=== PATIENT | male | born 1940 | race Caucasian/White ===

== ENCOUNTER 2020-01-12 08:17 | Inpatient (IN) ==
[2020-01-12 08:40] LABS: Basophils % 0.1 %; Eosinophils % 0.1 %; Hematocrit 40.7 % (37.5-50.1); Hemoglobin 12.9 g/dL (12.9-16.9); Immature Granulocytes % 0.3 % (0-4); Lymphocytes # 1.3 K/mcL (0.6-4.6); Lymphocytes % 8.6 %; Mean Corpuscular HGB Conc 31.7 g/dL (31.6-35.5); Mean Corpuscular Hemoglobin 30.7 pg (28.0-33.3); Mean Corpuscular Volume 96.9 fL (83.0-100.0); Mean Platelet Volume 10.8 fL (9.4-12.4); Monocytes # 0.9 K/mcL (0.0-1.3); Monocytes % 5.8 %; Neutrophils # 12.9 K/mcL (1.6-8.9); Platelet Count 181 K/mcL (140-400); Red Cell Distribution Width 13.5 % (11.5-14.5); Segmented Neutrophils % 85.1 %; White Blood Count 15.1 K/mcL (4.3-11.1)
[2020-01-12] MEDS ORDERED: 0.9 % Sodium Chloride 1,000 ML IVC ONE (08:55)
[2020-01-12 09:05] LABS: Alanine Aminotransferase 20 Units/L (7-52); Albumin/Globulin Ratio 1.2 (1.1-2.2); Alkaline Phosphatase 168 Units/L (34-104); Aspartate Amino Transferase 23 Units/L (13-39); BUN/Creatinine Ratio 25 (6-26); Blood Urea Nitrogen 24 mg/dL (8-23); Calcium 9.4 mg/dL (8.6-10.3); Carbon Dioxide 29 mEq/L (23-29); Chloride 105 mEq/L (98-107); Globulin 3.4 g/dL (2.4-3.5); Glucose 139 mg/dL (70-105); Osmolality,Calculated 302 (280-300); Potassium 3.6 mEq/L (3.5-5.1); Sodium 143 mEq/L (136-145); Total Protein 7.4 g/dL (6.4-8.9); Troponin I < 0.03 ng/mL (< 0.04); eGFR For African Americans > 60 (> 60); eGFR For Non-African Americans > 60 (> 60)
[2020-01-12 09:18] LABS: Creatine Kinase 101 Units/L (30-223)
[2020-01-12 09:24] LABS: Thyroid Stimulating Hormone 1.459 mcIU/mL (0.340-5.600)
[2020-01-12 09:30] LABS: Bilirubin,Urine Negative (Negative); Blood,Urine Negative (Negative); Clarity,Urine Clear (Clear); Color,Urine Yellow (Yellow); Glucose,Urine (UA) Normal (Normal); Ketones,Urine Trace mg/dL (Negative); Leukocyte Esterase,Urine Negative (Negative); Nitrite,Urine Negative (Negative); PH,Urine 5.5 pH Units (5.0-8.0); Protein,Urine Trace mg/dL (Neg-Trace); Specific Gravity,Urine 1.029 (1.010-1.025); Urobilinogen,Urine Normal (Normal)
[2020-01-12] MEDS ORDERED: Morphine Sulfate 2 MG/ML SYRINGE IVP STA (09:33)
[2020-01-12] MEDS ORDERED: *HR* Metoprolol 5 MG/5 ML VIAL IVP ONE (09:36)
[2020-01-12] MEDS ORDERED: Naloxone 0.4 MG/ML INJ IVP PRN ×2 (09:39→15:11)
[2020-01-12] MEDS ORDERED: *HR* FentaNYL (PF) 100 MCG/2 ML VIAL ONE (10:51)
[2020-01-12] MEDS ORDERED: *HR* Propofol 200 MG/20 ML VIAL IVP ONE (10:51)
[2020-01-12] MEDS ORDERED: Dexamethasone 4 MG/ML VIAL ONE (10:55)
[2020-01-12] MEDS ORDERED: Lidocaine -MPF 2% 2 ML VIAL ONE (10:55)
[2020-01-12] MEDS ORDERED: Ondansetron 4 MG/2 ML VIAL ONE (10:55)
[2020-01-12] MEDS ORDERED: *HR* Succinylcholine 200 MG/10 ML VIAL IVP ONE (10:55)
[2020-01-12] MEDS ORDERED: *HR* Rocuronium Bromide 50 MG/5 ML VIAL ONE (10:55)
[2020-01-12] MEDS ORDERED: *HR* OxyCODONE/APAP 10/325 TABLET PO PRN (11:05)
[2020-01-12] MEDS ORDERED: *HR* Heparin 5,000 UNIT/ML VIAL SQ SCH (14:00)
[2020-01-12] MEDS ORDERED: *HR* FentaNYL (PF) 100 MCG/2 ML VIAL IVP PRN (14:01)
[2020-01-12] MEDS ORDERED: Ondansetron 4 MG/2 ML VIAL IVP ONE (14:01)
[2020-01-12] MEDS ORDERED: Hydrocortisone Sodium Succ 100 MG/2 ML VIAL ONE (14:02)
[2020-01-12] MEDS ORDERED: Acetaminophen IV 1,000 MG/100 ML INFUS..BTL ONE (14:02)
[2020-01-12 15:25] LABS: Hematocrit 36.6 % (37.5-50.1); Hemoglobin 11.6 g/dL (12.9-16.9)
[2020-01-12] MEDS ORDERED: Hydrocortisone 10 MG TABLET PO SCH (18:00)
[2020-01-12] MEDS ORDERED: Gabapentin 100 MG CAPSULE PO SCH (18:00)
[2020-01-12] MEDS ORDERED: Melatonin 3 MG TABLET PO SCH (18:00)
[2020-01-12] MEDS: ceFAZolin 2,000 MG in 0.9 % Sodium Chloride 100 ML IVPB SCH (20:35)
[2020-01-12] MEDS: Melatonin 3 MG TABLET PO SCH (20:38)
[2020-01-12] MEDS: Mirtazapine 15 MG TABLET PO SCH (20:38)
[2020-01-12] MEDS: Gabapentin 100 MG CAPSULE PO SCH (20:38)
[2020-01-12] MEDS: Hydrocortisone 10 MG TABLET PO SCH (20:38)
[2020-01-12] MEDS ORDERED: Mirtazapine 15 MG TABLET PO SCH (21:00)
[2020-01-13 01:29] LABS: Hemoglobin 10.8 g/dL (12.9-16.9)
[2020-01-13 01:30] LABS: Hematocrit 33.2 % (37.5-50.1); Immature Platelets 5.1 % (1.1-6.1); Mean Corpuscular HGB Conc 32.5 g/dL (31.6-35.5); Mean Corpuscular Hemoglobin 31.9 pg (28.0-33.3); Mean Corpuscular Volume 97.9 fL (83.0-100.0); Mean Platelet Volume 11.4 fL (9.4-12.4); Red Blood Count 3.39 M/mcL (4.19-5.50); White Blood Count 9.3 K/mcL (4.3-11.1)
[2020-01-13 01:49] LABS: BUN/Creatinine Ratio 25 (6-26); Blood Urea Nitrogen 21 mg/dL (8-23); Calcium 8.3 mg/dL (8.6-10.3); Carbon Dioxide 27 mEq/L (23-29); Chloride 107 mEq/L (98-107); Glucose 120 mg/dL (70-105); Magnesium 1.8 mg/dL (1.6-2.6); Osmolality,Calculated 292 (280-300); Potassium 3.9 mEq/L (3.5-5.1); Sodium 139 mEq/L (136-145); eGFR For African Americans > 60 (> 60); eGFR For Non-African Americans > 60 (> 60)
[2020-01-13] MEDS: ceFAZolin 2,000 MG in 0.9 % Sodium Chloride 100 ML IVPB SCH (05:10)
[2020-01-13] MEDS ORDERED: Cholecalciferol (D-3) 1,000 UNIT (25MCG) TABLET PO SCH (08:00)
[2020-01-13] MEDS ORDERED: Aspirin Enteric Coated 81 MG Tablet PO SCH ×2 (08:00)
[2020-01-13] MEDS: Cholecalciferol (D-3) 1,000 UNIT (25MCG) TABLET PO SCH (08:42)
[2020-01-13] MEDS: Hydrocortisone 10 MG TABLET PO SCH ×2 (08:42→17:51)
[2020-01-13] MEDS: Gabapentin 100 MG CAPSULE PO SCH ×2 (08:43→17:51)
[2020-01-13] MEDS ORDERED: Furosemide 20 MG TABLET PO SCH ×2 (09:00)
[2020-01-13] MEDS: *HR* OxyCODONE/APAP 10/325 TABLET PO PRN (09:11)
[2020-01-13] MEDS ORDERED: Haloperidol Lactate 5 MG/ML VIAL IM ONE (14:45)
[2020-01-13 15:57] LABS: Basophils % 0.2 %; Eosinophils # 0.3 K/mcL (0.0-0.6); Hematocrit 37.1 % (37.5-50.1); Hemoglobin 11.6 g/dL (12.9-16.9); Immature Granulocytes % 0.4 % (0-4); Lymphocytes # 1.6 K/mcL (0.6-4.6); Lymphocytes % 16.8 %; Mean Corpuscular HGB Conc 31.3 g/dL (31.6-35.5); Mean Corpuscular Hemoglobin 30.9 pg (28.0-33.3); Mean Corpuscular Volume 98.9 fL (83.0-100.0); Mean Platelet Volume 10.6 fL (9.4-12.4); Monocytes # 0.5 K/mcL (0.0-1.3); Platelet Count 118 K/mcL (140-400); Red Blood Count 3.75 M/mcL (4.19-5.50); Red Cell Distribution Width 13.9 % (11.5-14.5); Segmented Neutrophils % 74.6 %; White Blood Count 9.4 K/mcL (4.3-11.1)
[2020-01-13] MEDS: Acetaminophen 325 MG TABLET PO SCH (17:51)
[2020-01-13] MEDS: *HR* Heparin 5,000 UNIT/ML VIAL SQ SCH (17:55)
[2020-01-13] MEDS: Melatonin 3 MG TABLET PO SCH (22:26)
[2020-01-13] MEDS: risperiDONE 0.25 MG TABLET PO SCH (22:27)
[2020-01-13] MEDS: Mirtazapine 15 MG TABLET PO SCH (22:27)
[2020-01-14] MEDS: *HR* Heparin 5,000 UNIT/ML VIAL SQ SCH ×2 (06:38→16:35)
[2020-01-14 06:40] LABS: Mean Corpuscular Volume 97.4 fL (83.0-100.0)
[2020-01-14 06:41] LABS: Hematocrit 38.1 % (37.5-50.1); Hemoglobin 11.7 g/dL (12.9-16.9); Immature Platelets 4.9 % (1.1-6.1); Mean Corpuscular HGB Conc 30.7 g/dL (31.6-35.5); Mean Corpuscular Hemoglobin 29.9 pg (28.0-33.3); Mean Platelet Volume 10.9 fL (9.4-12.4); Red Blood Count 3.91 M/mcL (4.19-5.50); Red Cell Distribution Width 13.9 % (11.5-14.5); White Blood Count 7.4 K/mcL (4.3-11.1)
[2020-01-14 06:59] LABS: BUN/Creatinine Ratio 20 (6-26); Blood Urea Nitrogen 18 mg/dL (8-23); Calcium 8.9 mg/dL (8.6-10.3); Carbon Dioxide 31 mEq/L (23-29); Chloride 103 mEq/L (98-107); Glucose 90 mg/dL (70-105); Osmolality,Calculated 291 (280-300); Potassium 3.5 mEq/L (3.5-5.1); Sodium 140 mEq/L (136-145); eGFR For African Americans > 60 (> 60); eGFR For Non-African Americans > 60 (> 60)
[2020-01-14] MEDS: Gabapentin 100 MG CAPSULE PO SCH ×2 (07:27→16:35)
[2020-01-14] MEDS: Aspirin Enteric Coated 325 MG Tablet PO SCH (07:27)
[2020-01-14] MEDS: risperiDONE 0.25 MG TABLET PO SCH ×2 (07:27→20:32)
[2020-01-14] MEDS: methIMAzole 5 MG TABLET PO SCH (07:28)
[2020-01-14] MEDS: Furosemide 20 MG TABLET PO SCH (07:28)
[2020-01-14] MEDS: Acetaminophen 325 MG TABLET PO SCH ×2 (07:28→16:35)
[2020-01-14] MEDS: Hydrocortisone 10 MG TABLET PO SCH ×2 (07:28→16:35)
[2020-01-14] MEDS: Cholecalciferol (D-3) 1,000 UNIT (25MCG) TABLET PO SCH (07:28)
[2020-01-14] MEDS: Melatonin 3 MG TABLET PO SCH (16:36)
[2020-01-14] MEDS: Mirtazapine 15 MG TABLET PO SCH (20:32)
[2020-01-14] MEDS: *HR* OxyCODONE/APAP 10/325 TABLET PO PRN (23:54)
[2020-01-15 01:18] LABS: Hemoglobin 11.7 g/dL (12.9-16.9); Immature Granulocytes % 0.3 % (0-4)
[2020-01-15 01:20] LABS: Basophils % 0.3 %; Eosinophils # 0.3 K/mcL (0.0-0.6); Hematocrit 37.4 % (37.5-50.1); Immature Platelets 5.8 % (1.1-6.1); Lymphocytes # 1.2 K/mcL (0.6-4.6); Lymphocytes % 17.4 %; Mean Corpuscular HGB Conc 31.3 g/dL (31.6-35.5); Mean Corpuscular Hemoglobin 30.3 pg (28.0-33.3); Mean Corpuscular Volume 96.9 fL (83.0-100.0); Mean Platelet Volume 11.2 fL (9.4-12.4); Monocytes # 0.5 K/mcL (0.0-1.3); Monocytes % 7.2 %; Platelet Count 127 K/mcL (140-400); Red Blood Count 3.86 M/mcL (4.19-5.50); Red Cell Distribution Width 13.7 % (11.5-14.5); Segmented Neutrophils % 70.8 %; White Blood Count 7.1 K/mcL (4.3-11.1)
[2020-01-15 01:43] LABS: Alanine Aminotransferase 10 Units/L (7-52); Albumin 3.5 g/dL (3.5-5.7); Albumin/Globulin Ratio 1.1 (1.1-2.2); Alkaline Phosphatase 146 Units/L (34-104); Aspartate Amino Transferase 22 Units/L (13-39); BUN/Creatinine Ratio 26 (6-26); Blood Urea Nitrogen 22 mg/dL (8-23); Calcium 9.1 mg/dL (8.6-10.3); Carbon Dioxide 30 mEq/L (23-29); Chloride 105 mEq/L (98-107); Globulin 3.2 g/dL (2.4-3.5); Glucose 119 mg/dL (70-105); Osmolality,Calculated 298 (280-300); Potassium 3.8 mEq/L (3.5-5.1); Sodium 142 mEq/L (136-145); Total Protein 6.7 g/dL (6.4-8.9); eGFR For African Americans > 60 (> 60); eGFR For Non-African Americans > 60 (> 60)
[2020-01-15] MEDS: *HR* Heparin 5,000 UNIT/ML VIAL SQ SCH ×2 (05:20→17:26)
[2020-01-15] MEDS: Furosemide 20 MG TABLET PO SCH (08:56)
[2020-01-15] MEDS: methIMAzole 5 MG TABLET PO SCH (08:56)
[2020-01-15] MEDS: Acetaminophen 325 MG TABLET PO SCH ×2 (08:57→17:26)
[2020-01-15] MEDS: Gabapentin 100 MG CAPSULE PO SCH ×2 (08:57→19:20)
[2020-01-15] MEDS: Aspirin Enteric Coated 325 MG Tablet PO SCH (08:57)
[2020-01-15] MEDS: Cholecalciferol (D-3) 1,000 UNIT (25MCG) TABLET PO SCH (08:57)
[2020-01-15] MEDS: Hydrocortisone 10 MG TABLET PO SCH ×2 (08:57→17:26)
[2020-01-15] MEDS: risperiDONE 0.25 MG TABLET PO SCH (08:57)
[2020-01-15] MEDS: *HR* OxyCODONE/APAP 10/325 TABLET PO PRN (14:49)
[2020-01-15] MEDS: Melatonin 3 MG TABLET PO SCH (17:26)
[2020-01-15] MEDS: risperiDONE 1 MG TABLET PO SCH (21:50)
[2020-01-15] MEDS: Mirtazapine 15 MG TABLET PO SCH (21:50)
[2020-01-16] MEDS: *HR* Heparin 5,000 UNIT/ML VIAL SQ SCH ×2 (05:56→18:05)
[2020-01-16] MEDS: methIMAzole 5 MG TABLET PO SCH (08:37)
[2020-01-16] MEDS: risperiDONE 1 MG TABLET PO SCH ×2 (08:38→21:36)
[2020-01-16] MEDS: Acetaminophen 325 MG TABLET PO SCH ×2 (08:39→18:02)
[2020-01-16] MEDS: Aspirin Enteric Coated 325 MG Tablet PO SCH (08:39)
[2020-01-16] MEDS: Cholecalciferol (D-3) 1,000 UNIT (25MCG) TABLET PO SCH (08:41)
[2020-01-16] MEDS: Furosemide 20 MG TABLET PO SCH (08:42)
[2020-01-16] MEDS: Gabapentin 100 MG CAPSULE PO SCH ×2 (08:42→18:05)
[2020-01-16] MEDS: Hydrocortisone 10 MG TABLET PO SCH ×2 (08:42→18:05)
[2020-01-16] MEDS: *HR* OxyCODONE/APAP 10/325 TABLET PO PRN (10:34)
[2020-01-16] MEDS ORDERED: *HR* OxyCODONE/APAP 5/325 TABLET PO PRN (10:50)
[2020-01-16] MEDS: Melatonin 3 MG TABLET PO SCH (18:04)
[2020-01-16] MEDS: Mirtazapine 15 MG TABLET PO SCH (21:36)
[2020-01-17] MEDS: *HR* Heparin 5,000 UNIT/ML VIAL SQ SCH (05:49)
[2020-01-17] MEDS: methIMAzole 5 MG TABLET PO SCH (08:10)
[2020-01-17] MEDS: Cholecalciferol (D-3) 1,000 UNIT (25MCG) TABLET PO SCH (08:11)
[2020-01-17] MEDS: Gabapentin 100 MG CAPSULE PO SCH (08:11)
[2020-01-17] MEDS: Hydrocortisone 10 MG TABLET PO SCH (08:11)
[2020-01-17] MEDS: Acetaminophen 325 MG TABLET PO SCH (08:12)
[2020-01-17] MEDS: risperiDONE 1 MG TABLET PO SCH (08:12)
[2020-01-17] MEDS: Furosemide 20 MG TABLET PO SCH (08:12)
[2020-01-17] MEDS: Aspirin Enteric Coated 325 MG Tablet PO SCH (08:12)
[2020-01-17 11:25] VITALS: BP 120/75
== END 2020-01-17 11:56 | DRG 481 ==
LOC: EMEROOARM 08:17 → 3NENU 08:17 → SUATTDRO 11:44
PROVIDERS: ADMIT Internal Medicine; ATTEND Student in an Organized Health Care Education/Training Program